=== PATIENT | female | born 1975 | race Two or more races ===

== ENCOUNTER 2017-02-11 17:45 | Inpatient (IN) | payer MEDICAID ==
[~2017-02-11] VITALS: Ht 157.5 cm; Wt 78.0 kg
[~2017-02-11 17:45] MED LIST: PREN1TAB49
[2017-02-11 18:07] VITALS: BP 131/77; PULSE 130; Ht 157.5 cm; Wt 78.0 kg
--- NOTE | 2017-02-11 19:26 | RADRPT ---
PROCEDURE: US biophysical profile. CLINICAL INDICATION: Labor. well-being. TECHNIQUE: Multiple sonographic images of the uterus were obtained. The images were revi ewed on a PACS workstation. COMPARISON: No prior studies are available for comparison. FINDINGS: There is a single live intrauterine gestation. heart rate is 131 beats per minute. The position is cephalic. The placenta is anterior, grade II. The TODD is 8.1 cm. Breathing Movement: 2 Gross Body Movement: 2 Tone: 2 Qualitative Amniotic Fluid Volume: 2 TOTAL: 8 IMPRESSION: 1. Single viable intrauterine gestation. 2. Biophysical profile = /8. 3. TODD = 8.1 cm. RPTAT: HFN .Kathy Whitehead MD, MD Date Time Electronically viewed and signed by .Kathy Whitehead MD, MD on 02/11/2017 19:26 .N/
--- NOTE | 2017-02-11 22:19 | TRIAGE ---
OB Triage Datetime Report Generated by CPN: 02/11/2017 22:18 Datetime: 02/11/2017 21:46 Stage of : OB Triage Monitor Mode: External Quality: Moderate Pattern: Normal: <= 5 Contractions in 10 Minutes Resting Tone [place]: Relaxed Heart Rate FHR Baseline Rate: 130 Monitor Mode: External US FHR Baseline Changes: No Baseline Change Variability: Moderate 6-25 bpm Accelerations: 15X15 Decelerations: None Category: Category I Vaginal Exam Dilatation (cms): 3.0 Effacement (%): 70 Station: -1 Exam By: E Deni Membrane Status: Intact Vaginal Bleeding: Scant Cervix, Consistency: Soft Cervix, Position: Posterior Presentation 'A': Cephalic Datetime: 02/11/2017 21:27 Stage of : OB Triage Labor Evaluation Frequency: placed Monitor Mode: External Resting Tone [place]: Relaxed Monitor Mode: External US Comments: 135 Pain Assessment Pain Scale: 5 Pain Presence: Intermittent Pain Type: Contraction Pain Location: Abdomen Datetime: 02/11/2017 19:42 Stage of : OB Triage Heart Rate FHR Baseline Rate: 135 Monitor Mode: External US FHR Baseline Changes: No Baseline Change Variability: Moderate 6-25 bpm Accelerations: 15X15 Decelerations: None Category: Category I Datetime: 02/11/2017 19:23 Stage of : OB Triage Maternal Assessment Level of Consciousness: Fully Conscious Headache: Denies Blurred Vision: No Nausea/Vomiting: Denies RUQ Epigastric Pain: Denies Labor Evaluation Frequency: 2-5 Monitor Mode: External Quality: Mild Pattern: Normal: <= 5 Contractions in 10 Minutes Resting Tone [place]: Relaxed Heart Rate FHR Baseline Rate: 135 Monitor Mode: External US Pain Assessment Pain Scale: 6 Pain Presence: Intermittent Pain Type: Contraction Pain Location: Abdomen Datetime: 02/11/2017 17:53 Stage of : OB Triage Assessment Type: Triage EGA: 39.1 Maternal Assessment Level of Consciousness: Fully Conscious DTR's/Clonus: DTRs 2+; No Clonus Headache: Denies Blurred Vision: No Respiratory Effort: Unlabored; Regular Rhythm; Equal Expansion Breath Sounds, Left: Clear and Equal Breath Sounds, Right: Clear and Equal Nausea/Vomiting: Denies RUQ Epigastric Pain: Denies Facial Edema: None Temperature Route: Axillary Fall Risk Assessment History of Falling: (0) No Secondary Diagnosis: (0) No Ambulatory Aid: (0) Bedrest/Nurse Assist IV Therapy: (0) No Gait: (0) Normal/Bedrest/Immobile Mental Status: (0) Oriented to Own Ability Fall Score: 0 Fall Risk Score Definition: No Risk: No action required Labor Evaluation Frequency: 0 Monitor Mode: External Resting Tone [place]: Relaxed Heart Rate FHR Baseline Rate: 130 Monitor Mode: External US Variability: Moderate 6-25 bpm Decelerations: None Pain Assessment Pain Scale: 8 Pain Presence: Intermittent Pain Type: Cramping; Contraction Pain Location: Abdomen Pain Goal: 3 Pain Relief Measures: Comfort Measures Vaginal Exam Dilatation (cms): 1.0 Effacement (%): 50 Station: -2 Exam By: Jing IBRAHIM Membrane Status: Intact Datetime: 02/11/2017 17:51 Time of Arrival: 02/11/2017 17:30 Arrived By: Ambulatory Arrived From: Home Chief Complaint: C/O UC'S THAT STARTED LAST NIGHT INTO TODAY PROGRESSING TO EVERY 5 MIN. SCANT BL EEDING, DENIES LEAKING Movement: Present Contractions: Irregular Contractions: 5-10 Rupture of Membranes: Denies Vaginal Bleeding: None Vaginal Discharge: Denies Recent Sexual Intercouse: Denies Abdominal Trauma: Not Applicable Patient Complaints: Contractions; Cramping Time Provider Notified: 02/11/2017 18:00 Provider Notified: Dr Aguillon Initial Plan: MONITOR, VE
[2017-02-11] MEDS ORDERED: MISOPROSTOL 200 MCG TAB PR PRN (22:30)
[2017-02-11] MEDS ORDERED: OXYTOCIN 30 UNITS/LR 500 ML IV SCH ×2 (22:30)
[2017-02-11] MEDS ORDERED: OXYTOCIN 30 UNITS/LR 500 ML IV PRN (22:30)
[2017-02-11] MEDS ORDERED: LIDOCAINE 1% (MPF) 30 ML INJ INJ PRN (22:30)
[2017-02-11] MEDS ORDERED: IBUPROFEN 600 MG TAB PO PRN (22:30)
[2017-02-11] MEDS ORDERED: CARBOPROST 250 MCG INJ IM PRN (22:30)
[2017-02-11] MEDS ORDERED: METHYLERGONOVINE 0.2 MG INJ IM PRN (22:30)
[2017-02-11] MEDS ORDERED: MINERAL OIL LIGHT 10 ML VIAL TOP ONE (22:30)
[2017-02-11] MEDS ORDERED: BUTORPHANOL 2 MG INJ IV PRN (22:30)
[2017-02-11] MEDS ORDERED: LACTATED RINGER'S 1,000 ML IV PRN (23:30)
[2017-02-12] MEDS: LACTATED RINGER'S 1,000 ML IV SCH ×5 (00:07→19:43)
[2017-02-12 00:25] LABS: BASOPHIL # 0.1 10^3/ul (0.0-0.1); BASOPHILS % 0.4 % (0.0-2.0); EOSINOPHILS # 0.2 10^3/ul (0.0-0.5); EOSINOPHILS % 1.4 % (0.0-7.0); HEMATOCRIT 32.1 % (37.0-47.0); HEMOGLOBIN 10.8 g/dl (12.0-16.0); LYMPHOCYTES # 2.2 10^3/ul (0.8-2.9); LYMPHOCYTES % 17.4 % (15.0-51.0); MEAN CORPUSCULAR HEMOGLOBIN 29.5 pg (29.0-33.0); MEAN CORPUSCULAR HGB CONC 33.6 g/dl (32.0-37.0); MEAN CORPUSCULAR VOLUME 87.7 fl (82.0-101.0); MEAN PLATELET VOLUME 10.3 fl (7.4-10.4); MONOCYTE # 0.8 10^3/ul (0.3-0.9); MONOCYTES % 6.3 % (0.0-11.0); NEUTROPHIL # 9.5 10^3/ul (1.6-7.5); PLATELET COUNT 256 10^3/UL (140-415); RED BLOOD COUNT 3.66 10^6/ul (4.20-5.40); RED CELL DISTRIBUTION WIDTH 13.3 % (11.5-14.5); WHITE BLOOD COUNT 12.8 10^3/ul (4.8-10.8)
[2017-02-12 00:43] LABS: INR 1.05; PROTIME 13.7 Sec (12.2-14.2); PT RATIO 1.1
[2017-02-12 00:44] LABS: PARTIAL THROMBOPLASTIN TIME 28.1 Sec (25.0-35.0)
[2017-02-12] MEDS ORDERED: OXYTOCIN 30 UNITS/LR 500 ML IV SCH (08:30)
--- NOTE | 2017-02-12 14:45 | HP ---
Date/Time of Note Date/Time of Note DATE: 02/12/17 TIME: 14:20 OB - History Hx of Present Free Text/Dictation 41 y/o 39 weeks 2/7 days, admitted to l&d in early labor ,first pelvic exam, cx was only 1cm dilated ,then progressed to 3 cm, 70 to 80% effacement, vertex at-2 station, due to low intensity and infrequent contraction she require labor augmentation with Pitocin iv infusion drip. Chief Complaint: labor contraction Estimated Due Date: Feb 17, 2017 : 3 Para: 2 Care: Good Care Ultrasounds: Normal mid trimester US Obstetrical Complications: None Medical Complications: None Past Family/Social History * Past Medical, Surgical, Family and Obstetric Histories reviewed from chart. Rubella: immune RPR/VDRL: Negative GBS Status: Negative HBsAG: Negative OB Admission Exam Vital Signs Vital Signs Vital Signs Date Time Temp Pulse Resp B/P Pulse Ox O2 Delivery O2 Flow Rate FiO2 02/11/17 18:07 98.5 130 131/77 Physical Exam HEENT: WNL Heart: Rhythm Normal Lungs: Clear, Equal Abdomen: WNL Extremities: Normal Reflexes: Normal Cervical Dilatation: 3cm Effacement: Other (80%) Station: -2 Membranes: Intact Heart Rate: 130's Accelerations: Accelerations Present Decelerations: No Decelerations Varibility: Marked Contractions on Admission: 6-10 Minutes Apart Last 72 hours Lab Results CBC & BMP 02/12/17 00:03 OB Assessment/Plan Reason for admission: other (early labor) Plan: Other (labor augmentation with pitocin iv infusiondrip) JOCE LOPEZ MD Feb 12, 2017 14:35
[2017-02-12] MEDS ORDERED: DIPHENHYDRAMINE 50 MG INJ IV PRN (15:00)
[2017-02-12] MEDS ORDERED: ONDANSETRON 4 MG INJ IV PRN ×2 (15:00→22:30)
[2017-02-12] MEDS ORDERED: NALOXONE (0.4 MG/ML) INJ IV PRN (15:00)
[2017-02-12] MEDS ORDERED: FENTAnyl 2MCG/ML-ROPIV 0.2% 100 ML BAG EPI SCH (15:00)
--- NOTE | 2017-02-12 20:29 | LDN ---
Date/Time of Note Date/Time of Note DATE: 02/12/17 TIME: 20:23 Delivery Summary Normal spontaneous vaginal delivery of a baby girl from OA position shoulders delivered without any difficulty rest of the baby's body followed cord clamped after stopped pulsation placenta spontaneous expulsion inspected complete baby had nuchal cord 1 estimated blood loss 250 cc Weeks of Gestation 39 weeks 2 days Placenta Delivered: Spontaneously Meconium: none Episiotomy: No Perineal laceration: 1 Laceration repair: Small first-degree perineal laceration repaired with 3-0 chromic catgut Anesthesia type: Epidural Estimated blood loss: 250 Sponge & Needle done & correct: Yes All needle counts correct: Yes Any foreign bodies felt in the: No Problems: Infant Delivery Information Sex Sex: female Apgars 1 Minute: 9 5 Minute: 9 Suctioning Nose & mouth suctioned at sofia: Yes Delee suction performed: No Umbilical Cord Umbilical cord with: 3 Vessels Cord presentations: nuchal cord Cord Blood was obtained: Yes JOCE LOPEZ MD Feb 12, 2017 20:29
[2017-02-12 22:20] VITALS: BP 114/70; PULSE 66; RESP 18
[2017-02-12] MEDS ORDERED: WITCH HAZEL/GLYCERIN PAD PR PRN (22:30)
[2017-02-12] MEDS ORDERED: DIBUCAINE 1% 30 GM OINT PR PRN (22:30)
[2017-02-12] MEDS ORDERED: ACETAMINOPHEN 325 MG TAB PO PRN (22:30)
[2017-02-12] MEDS ORDERED: LANOLIN 7 GM TUBE TOP PRN (22:30)
[2017-02-12] MEDS ORDERED: HYDROCODONE/APAP (5/325) TAB PO PRN ×2 (22:30)
[2017-02-12] MEDS ORDERED: OXYCODONE/ASPIRIN (4.88/325) TAB PO PRN ×2 (22:30)
[2017-02-12] MEDS ORDERED: BENZOCAINE 20% 56 ML SPRAY TOP PRN (22:30)
[2017-02-12] MEDS: OXYTOCIN 30 UNITS/LR 500 ML IV SCH (23:03)
[2017-02-12 23:30] VITALS: BP 125/72; PULSE 75; RESP 18
[2017-02-13 00:20] VITALS: BP 108/64; PULSE 79; RESP 18
[2017-02-13] MEDS: IBUPROFEN 600 MG TAB PO SCH ×4 (00:23→17:24)
[2017-02-13] MEDS ORDERED: OXYTOCIN 30 UNITS/LR 500 ML IV PRN (00:30)
[2017-02-13] MEDS ORDERED: CARBOPROST 250 MCG INJ IM PRN (00:30)
[2017-02-13] MEDS ORDERED: METHYLERGONOVINE 0.2 MG INJ IM PRN (00:30)
[2017-02-13] MEDS ORDERED: MISOPROSTOL 200 MCG TAB PR PRN (00:30)
[2017-02-13] MEDS: OXYTOCIN 30 UNITS/LR 500 ML IV SCH (02:49)
[2017-02-13 03:45] VITALS: BP 102/60; PULSE 70; RESP 18
[2017-02-13 08:00] VITALS: BP 114/58; PULSE 70; RESP 18
[2017-02-13] MEDS: SENNA/DOCUSATE NA (8.6MG/50MG) TAB PO SCH ×2 (08:20→21:18)
[2017-02-13 08:22] LABS: BASOPHIL # 0.1 10^3/ul (0.0-0.1); BASOPHILS % 0.4 % (0.0-2.0); EOSINOPHILS # 0.3 10^3/ul (0.0-0.5); EOSINOPHILS % 1.5 % (0.0-7.0); HEMATOCRIT 28.3 % (37.0-47.0); HEMOGLOBIN 9.2 g/dl (12.0-16.0); LYMPHOCYTES # 2.1 10^3/ul (0.8-2.9); LYMPHOCYTES % 11.6 % (15.0-51.0); MEAN CORPUSCULAR HEMOGLOBIN 29.1 pg (29.0-33.0); MEAN CORPUSCULAR HGB CONC 32.5 g/dl (32.0-37.0); MEAN CORPUSCULAR VOLUME 89.6 fl (82.0-101.0); MEAN PLATELET VOLUME 10.3 fl (7.4-10.4); MONOCYTE # 1.3 10^3/ul (0.3-0.9); MONOCYTES % 6.8 % (0.0-11.0); NEUTROPHIL # 14.5 10^3/ul (1.6-7.5); NEUTROPHILS % 79.2 % (39.0-77.0); PLATELET COUNT 203 10^3/UL (140-415); RED BLOOD COUNT 3.16 10^6/ul (4.20-5.40); RED CELL DISTRIBUTION WIDTH 13.5 % (11.5-14.5); WHITE BLOOD COUNT 18.4 10^3/ul (4.8-10.8)
--- NOTE | 2017-02-13 10:55 | QN ---
Documentation Comment day 1 Afebrile Vital signs are stable Abdomen soft Uterus firm Lochia normal Extremity normal JOCE LOPEZ MD Feb 13, 2017 10:55
[2017-02-13 16:30] VITALS: BP 121/63; PULSE 70; RESP 18
[2017-02-13 19:40] VITALS: BP 130/73; PULSE 70; RESP 18
[2017-02-14] MEDS: IBUPROFEN 600 MG TAB PO SCH ×3 (00:08→11:39)
[2017-02-14 04:00] VITALS: BP 112/66; PULSE 59; RESP 18
[2017-02-14 07:40] VITALS: BP 113/77; PULSE 65; RESP 16
[2017-02-14] MEDS: SENNA/DOCUSATE NA (8.6MG/50MG) TAB PO SCH (08:36)
[2017-02-14] MEDS ORDERED: MEASLES,MUMPS,RUBELLA VACCINE INJ SC* ONE (09:00)
--- NOTE | 2017-02-14 10:12 | PD.PPDC ---
IT DIRECTOR Discharge Instruction Condition Patient Condition: Good Diet Diet: Resume Regular Diet Activity/Restrictions Activity: Normal Activity May Shower Wound/Drain Care Instructions Wound/Drain Care Instructions: Wash with soap and water Keep clean and dry Follow-up Follow-up with Physician: 2, Week/Weeks Provider Information: instruction given recommended to make appointment to be seen at the clinic in 2 weeks Return to clinic for [facility] Instructions: Fever greater than 101 Chills Worsening abdominal pain Excessive Vaginal Bleeding More than 2 pads per hour Unable to tolerate diet OB Instructions: Breast Tenderness Depression Blurried Vision Headache JOCE LOPEZ MD Feb 14, 2017 10:12
--- NOTE | 2017-02-14 10:16 | DS ---
Date/Time of Note Date/Time of Note DATE: 02/14/17 TIME: 10:13 Discharge Summary Admission/Discharge Info Admit Date/Time Feb 11, 2017 at 21:45 Discharge Date/Time February 14, 2017 at 10:15 AM Discharge Diagnosis Post normal vaginal delivery day 2 Patient Condition: Good Procedures Normal spontaneous vaginal delivery Hx of Present Illness Term in labor Hospital Course Satisfactory uneventful recovery Home Meds Reported Medications Vits W-Ca,Fe,Fa(<1MG) () 1 Tab Tablet 11/04/10 Follow-up Plan instructions given recommended to make appointment to be seen at the clinic in 2 weeks Primary Care Provider Care Physician No Primary Time spent on discharge: < 30 minutes JOCE LOPEZ MD Feb 14, 2017 10:16
== END 2017-02-14 14:15 | disposition home or self-care (01) | DRG 775 ==
LOC: OBT 17:45 → L-D 17:47 → OBT 21:45 → PP1 02-12 22:09
PROVIDERS: ADMIT Obstetrics & Gynecology; ATTEND Obstetrics & Gynecology
PROC: 10E0XZZ Delivery of Products of Conception, External Approach (ICD-10-PCS; principal; 2017-02-12)
PROC: 0HQ9XZZ Repair Perineum Skin, External Approach (ICD-10-PCS; 2017-02-12)
PROC: 3E0P3VZ Introduction of Hormone into Female Reproductive, Percutaneous Approach (ICD-10-PCS; 2017-02-12)
DX: O69.81X0 Labor and delivery complicated by cord around neck, without compression, not applicable or unspecified (principal); O70.0 First degree perineal laceration during delivery; Z3A.39 39 weeks gestation of pregnancy; Z37.0 Single live birth
CPT/HCPCS: 62319; 76818; 85025; 85610; 85730; 86592; 86703; 86900; 86901; 99464; G0463; J2590; J3010; J7120